=== PATIENT | female | born 1990 | race Caucasian/White ===

== ENCOUNTER 2023-10-29 02:32 | Emergency (ER) | payer BC ==
[2023-10-29] MEDS ORDERED: Ketorolac 30 MG/ML SDV IVPUSH ONE (02:50)
[2023-10-29] MEDS ORDERED: Sodium Chloride 0.9% 10 ML Syringe FLUSH PRN (02:50)
[2023-10-29] MEDS ORDERED: Ondansetron 4 MG/2 ML SDV IVPUSH ONE (02:50)
[2023-10-29] MEDS ORDERED: Sodium Chloride 0.9% 1,000 ML IV SCH (03:00)
[2023-10-29 03:30] LABS: HEMATOCRIT 43.7 % (34.2-48.2); HEMOGLOBIN 14.8 g/dL (11.4-15.5); MEAN CORPUSCULAR HEMOGLOBIN 30.4 pg (23.9-33.9); MEAN CORPUSCULAR HGB CONC 33.8 g/dL (31.9-34.8); MEAN PLATELET VOLUME 9.5 fL (7.1-12.4); PLATELET COUNT,PLT 240 x10(3)uL (151-488); RED BLOOD CELL COUNT 4.86 x10(6)uL (3.60-5.20); RED CELL DISTRIBUTION WIDTH 12.6 % (12.3-16.5); WHITE BLOOD CELL COUNT,WBC 13.2 x10-3/uL (3.0-10.3)
[2023-10-29 03:34] LABS: BLOOD UREA NITROGEN,BUN 18 mg/dL (7-18); CALCIUM 9.6 mg/dL (8.6-10.2); CARBON DIOXIDE,CO2 22 mmol/L (21-32); CHLORIDE,CL 103 mmol/L (100-110); CREATININE 0.9 mg/dL (0.55-1.02); ESTIMATED GFR 88 mL/min (>60); GLUCOSE RANDOM 131 mg/dL (80-116); POTASSIUM,K 3.6 mmol/L (3.5-5.3); SODIUM,NA 139 mmol/L (135-145)
[2023-10-29 03:41] LABS: ALANINE AMINOTRANSFERASE,ALT 79 U/L (12-36); ALBUMIN 3.9 g/dL (3.5-5.2); ALKALINE PHOSPHATASE 117 IU/L (56-112); ASPARTATE AMNIOTRANSFERASE,AST 37 IU/L (5-25); BILIRUBIN TOTAL 0.8 mg/dL (0.1-1.3); PROTEIN TOTAL,TP 7.8 g/dL (6.0-8.0)
[2023-10-29 04:24] LABS: BAND PERCENT MAN 1 % (0-6); LYMPHOCYTES PERCENT MAN 6 % (13-37); MONOCYTES PERCENT MAN 3 % (4-12); SEG NEUTROPHILS PERCENT MAN 90 % (46-82)
== END 2023-10-29 04:36 | disposition home or self-care (01) ==
LOC: FB.ED 02:32
DX: K52.9 Noninfective gastroenteritis and colitis, unspecified (principal); Z88.8 Allergy status to other drugs, medicaments and biological substances
CPT/HCPCS: 80053; 83690; 85025; 96361; 96374; 96375; 99283; 99284; J1885; J2405; J7030

== ENCOUNTER 2024-10-11 21:39 | Emergency (ER) | payer MEDICAID | END 2024-10-11 22:26 | disposition home or self-care (01) | LOC: FB.ED 21:39 | DX: S50.01XA Contusion of right elbow, initial encounter (principal); Z88.8 Allergy status to other drugs, medicaments and biological substances; W22.8XXA Striking against or struck by other objects, initial encounter | CPT/HCPCS: 73070-RT; 99283 ==

== ENCOUNTER 2025-02-28 10:18 | Emergency (ER) | payer MEDICAID, OTHER | END 2025-02-28 13:45 | disposition left against medical advice (07) | LOC: FB.ED 10:18 | DX: Z53.21 Procedure and treatment not carried out due to patient leaving prior to being seen by health care provider (principal) ==